=== PATIENT | male | born 1990 ===

== ENCOUNTER 2017-05-10 05:13 | Day surgery (SDC) | payer OTHER ==
[2017-05-10] VITALS (11 sets, daily range): BP systolic 104–128; BP diastolic 50–80
[~2017-05-10] VITALS: Ht 165.1 cm; Wt 73.0 kg
[~2017-05-10 05:13] MED LIST: NKM
[2017-05-10] MEDS ORDERED: oxyCONTIN 20mg tab ORAL ONE (06:00)
[2017-05-10] MEDS ORDERED: celeBREX 200mg Cap **SURGERY PATIENTS ONLY ORAL ONE ×2 (06:00→06:03)
[2017-05-10] MEDS ORDERED: ceFAZolin 1gm in D5W 55ml IVP ONE (06:00)
[2017-05-10] MEDS ORDERED: Acetaminophen (Non formulary) 100 ML IV ONE (06:45)
[2017-05-10] MEDS ORDERED: fentaNYL 100 mcg/2 mL IV PRN (06:45)
[2017-05-10] MEDS ORDERED: EPINEPHrine 1mg/1ml Amp ONE (06:45)
[2017-05-10] MEDS ORDERED: Hydromorphone 0.5mg/0.5ml inj IVP PRN (06:45)
[2017-05-10] MEDS ORDERED: Bupivacaine 0.25% Inj 30ml INJ ONE ×2 (06:45→06:47)
[2017-05-10] MEDS ORDERED: Metoclopramide 10mg/2ml Inj IVP PRN (06:45)
[2017-05-10] MEDS ORDERED: Ropivacaine 5mg/ml Vial 30ml INJ ONE (06:47)
[2017-05-10] MEDS ORDERED: Metoclopramide 10mg/2ml Inj ONE (07:00)
[2017-05-10] MEDS ORDERED: Glycopyrrolate 0.2mg/ml 1ml Vial ONE (07:00)
[2017-05-10] MEDS ORDERED: LR 1000ml ONE (07:00)
[2017-05-10] MEDS ORDERED: Midazolam 2mg/2ml Inj ONE (07:00)
[2017-05-10] MEDS ORDERED: NS Irrig 4000ml IRRIG ONE (07:00)
[2017-05-10] MEDS ORDERED: fentaNYL 100 mcg/2 mL IV ONE (07:00)
[2017-05-10] MEDS ORDERED: Propofol 200mg/20ml IV ONE (07:00)
[2017-05-10] MEDS ORDERED: Zemuron 50mg/5ml Inj IV ONE (07:00)
[2017-05-10] MEDS ORDERED: Lidocaine 1% MPF 10mg/ml 5ml ONE (07:00)
[2017-05-10] MEDS ORDERED: Neostigmine 1mg/ml 10ml Inj ONE (07:00)
--- NOTE | 2017-05-10 07:08 | Pre-Procedure Note/Attestation ---
Pre-Procedure Note/Attestation Complete Prior to Procedure Planned Procedure: left Procedure Narrative: shoulder arthroscopy, possible slap repair, sad Indications for Procedure Pre-Operative Diagnosis: left shoulder internal derangement Attestation I attest that I discussed the nature of the procedure; its benefits; risks and complications; and alternatives (and the risks and benefits of such alternatives ), prior to the procedure, with the patient (or the patient's legal marketing development representative). I attest that, if there was a reasonable possibility of needing a blood transfusion, the patient (or the patient's legal marketing development representative) was given the [facility] standardized written summary, pursuant to the [place] Blood Safety Act ([place] Health and Safety Code # 1645, as amended). I attest that I re-evaluated the patient just prior to the surgery and that there has been no change in the patient's H&P, except as documented below: SHAHRZAD GLOVER May 10, 2017 07:08
--- NOTE | 2017-05-10 07:09 | Operative Note - PDOC ---
Operative Note Operative Note Pre-op Diagnosis: left shoulder internal derangement Procedure: left shoulder arthroscopy, see op report Post-op Diagnosis: same as pre-op plus Operative Findings: consistent w/pre-op dx studies Anesthesia: regional Specimen: none Complications: none Condition: stable Estimated Blood Loss: none Implant(s) used?: No SHAHRZAD GLOVER May 10, 2017 07:09
[2017-05-10] MEDS ORDERED: Tylenol #3 tab (300mg/30mg) ORAL PRN (07:15)
[2017-05-10] MEDS ORDERED: D5 1/2NS 1,000 ML IV SCH (07:15)
[2017-05-10] MEDS ORDERED: Norco 5mg/325mg tab ORAL PRN (07:15)
[2017-05-10] MEDS ORDERED: HYDROmorphone 1mg/ml Carpuject SUBQ PRN (07:15)
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
--- NOTE | 2017-05-10 09:31 | Immediate Post-Op Evaluation ---
Immediate Post-Op Evalulation Immediate Post-Op Evalulation Procedure: left shoulder decompression Date of Evaluation: May 10, 2017 Time of Evaluation: 08:35 IV Fluids: 1000 Blood Pressure Systolic: 112 Blood Pressure Diastolic: 69 Pulse Rate: 52 Respiratory Rate: 14 O2 Sat by Pulse Oximetry: 100 Temperature (Fahrenheit): 97.1 Pain Score (1-10): 0 Nausea: No Vomiting: No Complications none Patient Status: awake, reacts, patent Hydration Status: adequate Drug: ancef Given Within 1 Hr of Incision: Yes Time Given: 07:20 AB FITCH CRNA May 10, 2017 09:31
--- NOTE | 2017-05-10 11:50 | 48 Hour Post Anesthesia Eval ---
Post Anesthesia Evaluation Procedure: left shoulder decompression Date of Evaluation: May 10, 2017 Time of Evaluation: 11:49 Blood Pressure Systolic: 110 0: 50 Pulse Rate: 70 Respiratory Rate: 14 Temperature (Fahrenheit): 97.0 O2 Sat by Pulse Oximetry: 99 Airway: patent Nausea: No Vomiting: No Pain Intensity: 0 Hydration Status: adequate Cardiopulmonary Status: stable Mental Status/LOC: patient returned to baseline Post-Anesthesia Complications: none Follow-up care needed: N/A AB FITCH CRNA May 10, 2017 11:50
--- NOTE | 2017-05-10 15:00 | Operative Note - Dictated ---
DATE OF OPERATION: 05/10/2017 POSTOPERATIVE DIAGNOSIS: Left shoulder traumatic impingement syndrome. POSTOPERATIVE DIAGNOSIS: Left shoulder traumatic impingement syndrome. PROCEDURE PERFORMED: 1. Left shoulder diagnostic arthroscopy. 2. Left shoulder subacromial decompression bursectomy and release of the CA ligament. SURGEON: Leander Obrien M.D. ANESTHESIA: Interscalene with general. INDICATION FOR THE PROCEDURE: The patient is a pleasant gentleman who has had two-year history of left shoulder pain particularly with odd activities. He had an MRI, which showed some trace subdeltoid bursitis. He had clinical evidence of continued impingement syndrome. After failed conservative treatment, he elected to undergo left shoulder arthroscopy, subacromial decompression bursectomy. Risks, limitations, expectations and complications of the procedure were discussed in detail. All questions were addressed. DESCRIPTION OF PROCEDURE: An informed consent was obtained. The patient was brought to the operating room and placed under interscalene general anesthesia. The patient was then carefully placed in the beach chair position. Left shoulder was prepped and draped in a sterile manner. Time-out was performed. A posterolateral stab incision was then made. A trocar was introduced into the glenohumeral joint. An assisted-diagnostic arthroscopy was performed. There was no significant chondral damage. The labrum appeared to be intact. The superior labrum was intact along with the biceps tendon. The articular side of the rotator cuff insertion along the greater tuberosity was intact. Camera was then repositioned in the subacromial space. There was hypertrophic bursal tissue. The undersurface of the acromion was identified and acromioplasty was carried from lateral to medial and compared from posterior to anterior. Once that was done, the bursectomy was completed posteriorly. At this point, the instruments were removed. Portal sites were closed with 3-0 Monocryl sutures. Steri-Strips and a sterile dressing was applied. The patient was awoken and taken to recovery with stable vital signs. ESTIMATED BLOOD LOSS: None. COMPLICATIONS: None. SPECIMENS: None. IMPLANTS: None. Leander Obrien M.D. DR: JARVIS JOB#: [id number] CC:
== END 2017-05-10 10:05 | disposition home or self-care (01) ==
LOC: SUR 05:13
DX: M75.42 Impingement syndrome of left shoulder (principal)
CPT/HCPCS: 29823; J0171; J0690; J2250; J2405; J2704; J2710; J2765; J2795; J3010; J3490; J7120; 94003; 94150